=== PATIENT | female | born 1980 ===

== ENCOUNTER 2017-10-03 08:44 | Emergency (ER) | payer OTHER ==
[2017-10-03] MEDS ORDERED: Lidocaine 5% Patch TD STA (09:11)
--- NOTE | 2017-10-03 09:11 | C.PDOC ---
History Of Present Illness Patient is a 37 y/o female who presents to the ED with a complaint of new onset of right back pain for the last 7 days. Patient admits pain is localized and worsens when standing up or in supine position; describes pain as sharp, admitting to spasms. Denies any trauma, history of chronic back pain, relief with Aleve taken yesterday, or any other associated symptoms. NEW ONSET R BACK PAIN X 7 DAYS. LOCALIZED WORSE WHEN STANDING UP OR SUPINE. SHARP, SPASM. NO RELIEF W ALEVE YESTERDAY. NO TRAUMA, DENIES HO CHRONIC BACK PAIN, OTHER ASSOC SX EXAM MILD DIST NONTOXIC BACK LIMITED FULL EXTENSION, ROM DUE TO PAIN. +SPASM R LOWER BACK. NO LS TEND ABD NEG NEURO INTACT REMAINDER NEG Time Seen by Provider: 10/03/17 08:59 Chief Complaint (Nursing): Back Pain History Per: Patient History/Exam Limitations: no limitations Onset/Duration Of Symptoms: Days (7 days) Current Symptoms Are (Timing): Still Present Previous Symptoms: denies: Chronic Pain Exacerbating Factor(s): Standing, Other (supine) Recent travel outside of the [place]: No Past Medical History Reviewed: Historical Data, Nursing Documentation, Vital Signs Vital Signs: Last Vital Signs Temp 98.4 F 10/03/17 08:49 Pulse 84 10/03/17 08:49 Resp 20 10/03/17 08:49 BP 135/78 10/03/17 08:49 Pulse Ox 99 10/03/17 09:52 - Medical History PMH: No Chronic Diseases Surgical History: No Surg Hx Family History: States: No Known Family Hx - Social History Hx Tobacco Use: No Hx Alcohol Use: Yes Hx Substance Use: No - Immunization History Hx Tetanus Toxoid Vaccination: No Hx Influenza Vaccination: No Hx Pneumococcal Vaccination: No Review Of Systems Musculoskeletal: Positive for: Back Pain (right sided). Negative for: Leg Pain Neurological: Negative for: Weakness, Numbness, Dizziness Physical Exam - Physical Exam Appears: Non-toxic, In Acute Distress (mild) Skin: Normal Color, Warm, Dry Head: Atraumatic, Normacephalic Eye(s): bilateral: Normal Inspection Oral Mucosa: Moist Chest: Symmetrical Cardiovascular: Rhythm Regular, No Murmur Respiratory: Normal Breath Sounds, No Rales, No Rhonchi, No Wheezing Gastrointestinal/Abdominal: Soft, No Tenderness Back: Decreased ROM (limited full extension secondary to pain), Muscle Spasm ( right lower back), Other (negative lumbar tenderness) Extremity: No Tenderness Neurological/Psych: Oriented x3, Normal Speech, Normal Cognition, Normal Motor, Normal Sensation, Other (no focal deficits) ED Course And Treatment O2 Sat by Pulse Oximetry: 99 Progress Note: Tylenol, flexeril, decadron, neurontin, toradol, and lidoderm administered. POC urine ordered. Disposition Counseled Patient/Family Regarding: Studies Performed, Diagnosis, Need For Followup, Rx Given - Disposition Referrals: YOUR,PMD [Other] Disposition: HOME/ ROUTINE Disposition Time: 10:30 Condition: IMPROVED Prescriptions: Cyclobenzaprine [Flexeril] 10 mg PO TID #15 tab Gabapentin [Neurontin] 300 mg PO TID #30 cap Ibuprofen [Motrin] 600 mg PO Q6 #30 tab Lidocaine 5% [Lidoderm] 1 ea TD PRN PRN #10 patch PRN Reason: Pain, Moderate (4-7) Instructions: Low Back Pain (DC) Forms: General Discharge Instructions, [facility] (Polish), Work Excuse - Clinical Impression Clinical Impression: Low back pain - Scribe Statement The provider has reviewed the documentation as recorded by the Scribe Martha Pedraza All medical record entries made by the Scribe were at my direction and personally dictated by me. I have reviewed the chart and agree that the record accurately reflects my personal performance of the history, physical exam, medical decision making, and the department course for this patient. I have also personally directed, reviewed, and agree with the discharge instructions and disposition.
[2017-10-03 09:12] LABS: SQUAMOUS EPITHIAL < 1 /hpf (0-5); URINE BILIRUBIN NEGATIVE (NEGATIVE); URINE BLOOD NEGATIVE (NEGATIVE); URINE CLARITY Clear (Clear); URINE COLOR Yellow (YELLOW); URINE GLUCOSE (UA) NORMAL (Normal); URINE LEUKOCYTE ESTERASE NEG Leu/uL (Negative); URINE PROTEIN NEGATIVE (NEGATIVE); URINE UROBILINOGEN NORMAL mg/dL (0.2-1.0)
[2017-10-03] MEDS ORDERED: Lidocaine 5% Patch TD ONE (09:37)
[2017-10-03] MEDS ORDERED: Dexamethasone 4 mg/1 ml ONE (09:37)
[2017-10-03 11:07] VITALS: BP 122/78; PULSE 76; RESP 18; TEMP 98.8; O2SAT 97
== END 2017-10-03 11:14 | disposition home or self-care (01) ==
LOC: C.ER 08:44
DX: M54.5 Low back pain (principal)
CPT/HCPCS: 81001; 96372; 99284; J1885; J8540